=== PATIENT | female | born 1990 | race Caucasian/White ===

== ENCOUNTER 2018-03-09 19:22 | Inpatient (IN) | payer MEDICAID ==
[2018-03-09] MEDS: ALBUTEROL 0.5% (NEB) 2.5 MG/0.5 ML AMP INH (20:09)
[2018-03-09 20:48] LABS: ADD MAN DIFF? NO
[2018-03-09 20:49] LABS: WHITE BLOOD COUNT 39.3 10^3/ul (4.8-10.8)
[2018-03-09 20:49] LABS: ABNORMAL IP MESSAGE 1; HEMATOCRIT 43.6 % (37.0-47.0); MEAN CORPUSCULAR HEMOGLOBIN 27.3 pg (29.0-33.0); MEAN CORPUSCULAR HGB CONC 32.1 g/dl (32.0-37.0); MEAN CORPUSCULAR VOLUME 85.2 fl (82.0-101.0); MEAN PLATELET VOLUME 10.3 fl (7.4-10.4); NUCLEATED RED BLOOD CELLS% 0.1 /100WBC (0.0-0.0); PLATELET COUNT 310 10^3/UL (140-415); RED BLOOD COUNT 5.12 10^6/ul (4.20-5.40); RED CELL DISTRIBUTION WIDTH 13.6 % (11.5-14.5)
[2018-03-09 20:51] LABS: POSITIVE DIFF @See below
[2018-03-09 21:03] LABS: AADO2 Arterial 108.3 mmHg (7.0-24.0); Allen Test ACCEPTAB; Arterial Base Excess 6.1 mmol/L (-3.0-3); Arterial Blood Gas Oxygen Sat 88.6 mmHG (95.0-98.0); Arterial Fraction of Oxyhgb 87.5 % (93.0-99.0); Arterial HCO3 30.7 mmol/L (22.0-26.0); Arterial MetHb 0.2 % (0.0-1.5); Arterial pCO2 43.9 mmhg (35-45); MODE NASAL CANNULA; Site Right Radial
[2018-03-09] MEDS: SOD CHLORIDE 0.9% 1,000 ML IV ×2 (21:03→23:22)
[2018-03-09] MEDS: IBUPROFEN 600 MG TAB PO (21:03)
[2018-03-09 21:06] LABS: ALANINE AMINOTRANSFERASE 9 IU/L (13-69); ALBUMIN 3.7 g/dl (3.3-4.9); ALBUMIN/GLOBULIN RATIO 0.77; ALKALINE PHOSPHATASE 101 IU/L (42-121); ANION GAP 11 (5-13); ASPARTATE AMINO TRANSFERASE 23 IU/L (15-46); BILIRUBIN,INDIRECT 0.5 mg/dl (0-1.1); BILIRUBIN,TOTAL 0.5 mg/dl (0.2-1.3); BLOOD UREA NITROGEN 8 mg/dl (7-20); CALCIUM 8.1 mg/dl (8.4-10.2); CARBON DIOXIDE 30 mmol/L (21-31); CHLORIDE 96 mmol/L (97-110); CREATININE 0.56 mg/dl (0.44-1.00); Estimated GFR > 60 mL/min (>60); GLUCOSE 138 mg/dl (70-220); POTASSIUM 3.6 mmol/L (3.5-5.1); SODIUM 137 mmol/L (135-144); TOTAL PROTEIN 8.5 g/dl (6.1-8.1)
[2018-03-09 21:08] LABS: INR 1.17; PROTIME 15.1 Sec (11.9-14.9); PT RATIO 1.2
[2018-03-09 21:09] LABS: PARTIAL THROMBOPLASTIN TIME 36.3 Sec (23.0-35.0)
[2018-03-09 21:12] LABS: LIPASE < 10 U/L (23-300)
[2018-03-09 21:17] LABS: TROPONIN-I 0.021 ng/ml (0.000-0.120)
[2018-03-09] MEDS: CEFTRIAXONE 2 GM/50 ML (PMX) 50 ML IVPB (21:35)
[2018-03-09 21:45] LABS: ANISOCYTOSIS 1+ (0-0); BAND NEUTROPHILS #M 12.5 10^3/ul (0.0-0.6); BAND NEUTROPHILS % (M) 32 % (0-4); BASOPHIL #M 0.3 10^3/ul (0.0-0.0); BASOPHILS % (M) 1 % (0-2); GIANT THROMBO% (M) 2 % (0-0); LYMPHOCYTES #M 0.7 10^3/ul (0.8-2.9); LYMPHOCYTES % (M) 2 % (15-51); MICROCYTOSIS 1+ (0-0); MONOCYTE #M 2.7 10^3/ul (0.3-0.9); MONOCYTES % (M) 7 % (0-11); MYELOCYTES #M 0.3 10^3/ul (0.0-0.0); MYELOCYTES % (M) 1 % (0-0); OVALOCYTES 1+ (0-0); PLATELET ESTIMATE NORMAL; POLYCHROMASIA 1+ (0-0); REACTIVE LYMPHOCYTES #M 0.7 10^3/ul (0.0-0.0); REACTIVE LYMPHOCYTES% (M) 2 % (0-0); SEG NEUT #M 26.5 10^3/ul (1.6-7.5); SEGMENTED NEUTROPHILS (M) % 55 % (39-77); SMUDGE%M 31 % (0-0)
[2018-03-09] MEDS: AZITHROMYCIN 500MG/NS (PMX) 250 ML IVPB (22:18)
[2018-03-09] MEDS ORDERED: ALBUTEROL/IPRATROPIUM (NEB) 3 ML AMP HHN (23:30)
[2018-03-09] MEDS ORDERED: HYDROCODONE/APAP (5/325) TAB PO (23:30)
[2018-03-09] MEDS ORDERED: NACL 0.9% 3 ML SYG IV (23:30)
[2018-03-10 00:24] LABS: LACTIC ACID 1.3 mmol/L (0.5-2.0)
[2018-03-10] MEDS: HYDROCODONE/APAP (5/325) TAB PO (03:34)
[2018-03-10 06:09] LABS: ABNORMAL IP MESSAGE 1; HEMATOCRIT 43.8 % (37.0-47.0); HEMOGLOBIN 13.5 g/dl (12.0-16.0); MEAN CORPUSCULAR HEMOGLOBIN 27.1 pg (29.0-33.0); MEAN CORPUSCULAR HGB CONC 30.8 g/dl (32.0-37.0); MEAN CORPUSCULAR VOLUME 87.8 fl (82.0-101.0); MEAN PLATELET VOLUME 10.9 fl (7.4-10.4); NUCLEATED RED BLOOD CELLS% 0.1 /100WBC (0.0-0.0); PLATELET COUNT 331 10^3/UL (140-415); RED BLOOD COUNT 4.99 10^6/ul (4.20-5.40)
[2018-03-10 06:09] LABS: WHITE BLOOD COUNT 59.3 10^3/ul (4.8-10.8)
[2018-03-10 06:19] LABS: ADD MAN DIFF? YES; POSITIVE DIFF @See below
[2018-03-10 06:37] LABS: ALANINE AMINOTRANSFERASE 12 IU/L (13-69); ALBUMIN 3.6 g/dl (3.3-4.9); ALBUMIN/GLOBULIN RATIO 0.76; ALKALINE PHOSPHATASE 102 IU/L (42-121); ANION GAP 11 (5-13); ASPARTATE AMINO TRANSFERASE 28 IU/L (15-46); BILIRUBIN,INDIRECT 0.3 mg/dl (0-1.1); BILIRUBIN,TOTAL 0.3 mg/dl (0.2-1.3); BLOOD UREA NITROGEN 14 mg/dl (7-20); CALCIUM 7.5 mg/dl (8.4-10.2); CARBON DIOXIDE 31 mmol/L (21-31); CHLORIDE 99 mmol/L (97-110); Estimated GFR 59 mL/min (>60); GLUCOSE 128 mg/dl (70-220); MAGNESIUM 1.4 mg/dl (1.7-2.5); POTASSIUM 3.1 mmol/L (3.5-5.1); SODIUM 141 mmol/L (135-144); TOTAL PROTEIN 8.3 g/dl (6.1-8.1)
[2018-03-10 07:09] LABS: HEMOGLOBIN A1C 5.4 % (0-5.9)
[2018-03-10] MEDS ORDERED: VANCOMYCIN IV PER PHARMACY XX (08:30)
[2018-03-10 08:35] LABS: ANISOCYTOSIS 1+ (0-0); BAND NEUTROPHILS #M 17.1 10^3/ul (0.0-0.6); BAND NEUTROPHILS % (M) 29 % (0-4); BURR CELLS 1+ (0-0); LYMPHOCYTES #M 11.8 10^3/ul (0.8-2.9); LYMPHOCYTES % (M) 20 % (15-51); METAMYELOCYTES #M 1.7 10^3/ul (0.0-0.0); METAMYELOCYTES %M 3 % (0-0); MICROCYTOSIS 1+ (0-0); MONOCYTE #M 2.3 10^3/ul (0.3-0.9); MONOCYTES % (M) 4 % (0-11); MYELOCYTES #M 2.3 10^3/ul (0.0-0.0); MYELOCYTES % (M) 4 % (0-0); PLATELET ESTIMATE NORMAL; POLYCHROMASIA 3+ (0-0); REACTIVE LYMPHOCYTES #M 1.7 10^3/ul (0.0-0.0); REACTIVE LYMPHOCYTES% (M) 3 % (0-0); SEG NEUT #M 32.1 10^3/ul (1.6-7.5); SEGMENTED NEUTROPHILS (M) % 37 % (39-77); SMUDGE%M 35 % (0-0)
[2018-03-10] MEDS ORDERED: MEROPENEM 500MG/50 ML (PMX) 50 ML IVPB (09:00)
[2018-03-10] MEDS: MEROPENEM 1 GM/50ML(PMX) 50 ML IVPB ×3 (09:19→22:01)
[2018-03-10] MEDS: SOD CHLORIDE 0.9% 1,000 ML IV ×2 (11:32→20:44)
[2018-03-10] MEDS: VANCOMYCIN 1.75 GM in SOD CHLORIDE 0.9% 500 ML IVPB (12:49)
[2018-03-10] MEDS ORDERED: MEROPENEM 1 GM/50ML(PMX) 50 ML IVPB (14:00)
[2018-03-10] MEDS ORDERED: ALBUTEROL 0.083% (NEB) 2.5 MG/3 ML AMP HHN (17:30)
[2018-03-10] MEDS ORDERED: CEFTRIAXONE 2 GM/50 ML (PMX) 50 ML IVPB (17:30)
[2018-03-10] MEDS: POTASSIUM CHLORIDE 20 MEQ POWDER FOR ORAL SOLN PO (17:46)
[2018-03-10] MEDS: HYDROCODONE/APAP (10/325) TAB PO ×2 (17:51→22:18)
[2018-03-10] MEDS: MAGNESIUM SULFATE 4 GM/100 ML 100 ML IVPB (18:56)
[2018-03-10] MEDS: OSELTAMIVIR 75 MG CAP PO ×2 (20:43→22:01)
[2018-03-10] MEDS: AZITHROMYCIN 250 MG TAB PO (20:44)
[2018-03-10] MEDS: ONDANSETRON 4 MG INJ IV (22:55)
[2018-03-11] MEDS: VANCOMYCIN 1.75 GM in SOD CHLORIDE 0.9% 500 ML IVPB ×2 (00:24→12:23)
[2018-03-11] MEDS: MEROPENEM 1 GM/50ML(PMX) 50 ML IVPB ×3 (05:19→21:14)
[2018-03-11 06:44] LABS: ALANINE AMINOTRANSFERASE 11 IU/L (13-69); ALBUMIN 3.6 g/dl (3.3-4.9); ALKALINE PHOSPHATASE 143 IU/L (42-121); ANION GAP 6 (5-13); ASPARTATE AMINO TRANSFERASE 26 IU/L (15-46); BLOOD UREA NITROGEN 18 mg/dl (7-20); CARBON DIOXIDE 35 mmol/L (21-31); CHLORIDE 101 mmol/L (97-110); CREATININE 0.71 mg/dl (0.44-1.00); Estimated GFR > 60 mL/min (>60); GLUCOSE 149 mg/dl (70-220); MAGNESIUM 2.7 mg/dl (1.7-2.5); POTASSIUM 4.7 mmol/L (3.5-5.1); SODIUM 142 mmol/L (135-144); TOTAL PROTEIN 8.7 g/dl (6.1-8.1)
[2018-03-11 06:46] LABS: TROPONIN-I < 0.012 ng/ml (0.000-0.120)
[2018-03-11 07:16] LABS: ABNORMAL IP MESSAGE 1; HEMATOCRIT 44.8 % (37.0-47.0); HEMOGLOBIN 13.7 g/dl (12.0-16.0); MEAN CORPUSCULAR HEMOGLOBIN 27.3 pg (29.0-33.0); MEAN CORPUSCULAR HGB CONC 30.6 g/dl (32.0-37.0); MEAN CORPUSCULAR VOLUME 89.4 fl (82.0-101.0); MEAN PLATELET VOLUME 10.8 fl (7.4-10.4); NUCLEATED RED BLOOD CELLS% 0.1 /100WBC (0.0-0.0); PLATELET COUNT 303 10^3/UL (140-415); RED BLOOD COUNT 5.01 10^6/ul (4.20-5.40); RED CELL DISTRIBUTION WIDTH 14.1 % (11.5-14.5)
[2018-03-11 07:16] LABS: WHITE BLOOD COUNT 46.9 10^3/ul (4.8-10.8)
[2018-03-11 07:17] LABS: POSITIVE DIFF @See below
[2018-03-11 07:18] LABS: ADD MAN DIFF? YES
[2018-03-11 07:41] LABS: BAND NEUTROPHILS #M 2.8 10^3/ul (0.0-0.6); BAND NEUTROPHILS % (M) 6 % (0-4); BASOPHIL #M 0.4 10^3/ul (0.0-0.0); BASOPHILS % (M) 1 % (0-2); LYMPHOCYTES #M 1.8 10^3/ul (0.8-2.9); LYMPHOCYTES % (M) 4 % (15-51); MONOCYTE #M 1.8 10^3/ul (0.3-0.9); MONOCYTES % (M) 4 % (0-11); PLATELET ESTIMATE NORMAL; POLYCHROMASIA 1+ (0-0); SEG NEUT #M 41.2 10^3/ul (1.6-7.5); SEGMENTED NEUTROPHILS (M) % 85 % (39-77); SMUDGE%M 4 % (0-0)
[2018-03-11] MEDS: AZITHROMYCIN 250 MG TAB PO (08:47)
[2018-03-11] MEDS: OSELTAMIVIR 75 MG CAP PO ×2 (08:47→21:13)
[2018-03-11] MEDS: POTASSIUM CHLORIDE 20 MEQ POWDER FOR ORAL SOLN PO (08:48)
[2018-03-11] MEDS ORDERED: ENOXAPARIN 40 MG/0.4 ML SYG SC (09:00)
[2018-03-11 10:51] LABS: AADO2 Arterial 428.3 mmHg (7.0-24.0); Allen Test ACCEPTAB; Arterial Base Excess 2.1 mmol/L (-3.0-3); Arterial Blood Gas Oxygen Sat 98.8 mmHG (95.0-98.0); Arterial COHb 0.4 % (0.0-3.0); Arterial Fraction of Oxyhgb 98.1 % (93.0-99.0); Arterial HCO3 36.3 mmol/L (22.0-26.0); Arterial MetHb 0.3 % (0.0-1.5); Arterial pCO2 121.4 mmhg (35-45); MODE MASK - NRB; Site Right Radial
[2018-03-11] MEDS: NALOXONE (0.4 MG/ML) INJ IV ×2 (13:01→13:24)
[2018-03-11 13:24] LABS: B-TYPE NATRIURETIC PEPTIDE 609 PG/ML (0-125)
[2018-03-11] MEDS ORDERED: NALOXONE 2 MG SYG IV (13:30)
[2018-03-11 13:42] LABS: AADO2 Arterial 166.1 mmHg (7.0-24.0); Allen Test ACCEPTAB; Arterial Base Excess 6.1 mmol/L (-3.0-3); Arterial Blood Gas Oxygen Sat 96.8 mmHG (95.0-98.0); Arterial COHb 0.5 % (0.0-3.0); Arterial HCO3 41.5 mmol/L (22.0-26.0); Arterial MetHb 0.3 % (0.0-1.5); Arterial pCO2 142.1 mmhg (35-45); MODE MASK - BIPAP; Site Left Radial
[2018-03-11 13:57] LABS: ANION GAP 6 (5-13); BLOOD UREA NITROGEN 17 mg/dl (7-20); CARBON DIOXIDE 37 mmol/L (21-31); CHLORIDE 100 mmol/L (97-110); CREATININE 0.58 mg/dl (0.44-1.00); Estimated GFR > 60 mL/min (>60); GLUCOSE 93 mg/dl (70-220); MAGNESIUM 2.7 mg/dl (1.7-2.5); POTASSIUM 5.1 mmol/L (3.5-5.1); SODIUM 143 mmol/L (135-144)
[2018-03-11] MEDS: ALBUTEROL/IPRATROPIUM (NEB) 3 ML AMP HHN ×2 (14:00→20:20)
[2018-03-11 14:35] LABS: D-DIMER 5350.74 ng/ml (<460)
[2018-03-11] MEDS: FUROSEMIDE 20 MG INJ IV (15:06)
[2018-03-11 17:23] LABS: AADO2 Arterial 145.9 mmHg (7.0-24.0); Allen Test ACCEPTAB; Arterial Base Excess 3.8 mmol/L (-3.0-3); Arterial Blood Gas Oxygen Sat 96.8 mmHG (95.0-98.0); Arterial COHb 0.7 % (0.0-3.0); Arterial Fraction of Oxyhgb 95.9 % (93.0-99.0); Arterial HCO3 33.2 mmol/L (22.0-26.0); Arterial MetHb 0.2 % (0.0-1.5); Arterial pCO2 74.9 mmhg (35-45); Blood Gas IEPAP 20/6; MODE MASK - BIPAP; Site Right Radial
[2018-03-11 17:58] LABS: ADD UMIC YES; UR ASCORBIC ACID 20 mg/dL (NEGATIVE); UR BILIRUBIN (Dip) NEGATIVE (NEGATIVE); UR BLOOD (Dip) NEGATIVE (NEGATIVE); UR CLARITY CLOUDY (CLEAR); UR COLOR YELLOW (YELLOW); UR GLUCOSE (Dip) NEGATIVE (NEGATIVE); UR KETONES (Dip) NEGATIVE (NEGATIVE); UR LEUKOCYTE ESTERASE (Dip) NEGATIVE Leu/ul (NEGATIVE); UR NITRITE (Dip) NEGATIVE (NEGATIVE); UR RBC 2 /HPF (0-5); UR SQUAMOUS EPITHELIAL CELL FEW /HPF (FEW); UR TOTAL PROTEIN (Dip) NEGATIVE (NEGATIVE); UR UROBILINOGEN (Dip) NEGATIVE (NEGATIVE); UR WBC 3 /HPF (0-5)
[2018-03-11] MEDS: ENOXAPARIN 60 MG/0.6 ML SYG SC (18:20)
[2018-03-11] MEDS: DEXTROSE 5% 1,000 ML IV (18:21)
[2018-03-11 23:51] LABS: VANCOMYCIN,TROUGH 12.2 ug/ml (10.0-20.0)
[2018-03-12] MEDS: VANCOMYCIN 1.75 GM in SOD CHLORIDE 0.9% 500 ML IVPB (01:17)
[2018-03-12] MEDS: ACETAMINOPHEN 325 MG TAB PO ×2 (03:01→14:54)
[2018-03-12 05:15] LABS: ADD MAN DIFF? NO
[2018-03-12 05:16] LABS: WHITE BLOOD COUNT 22.6 10^3/ul (4.8-10.8)
[2018-03-12 05:16] LABS: BASOPHIL # 0.1 10^3/ul (0.0-0.1); BASOPHILS % 0.3 % (0.0-2.0); EOSINOPHILS # 0.1 10^3/ul (0.0-0.5); EOSINOPHILS % 0.3 % (0.0-7.0); HEMATOCRIT 39.3 % (37.0-47.0); HEMOGLOBIN 11.7 g/dl (12.0-16.0); LYMPHOCYTES # 1.9 10^3/ul (0.8-2.9); LYMPHOCYTES % 8.6 % (15.0-51.0); MEAN CORPUSCULAR HEMOGLOBIN 26.7 pg (29.0-33.0); MEAN CORPUSCULAR HGB CONC 29.8 g/dl (32.0-37.0); MEAN CORPUSCULAR VOLUME 89.5 fl (82.0-101.0); MEAN PLATELET VOLUME 10.6 fl (7.4-10.4); MONOCYTES % 4.6 % (0.0-11.0); NEUTROPHIL # 19.3 10^3/ul (1.6-7.5); NEUTROPHILS % 85.2 % (39.0-77.0); PLATELET COUNT 258 10^3/UL (140-415); RED BLOOD COUNT 4.39 10^6/ul (4.20-5.40)
[2018-03-12 05:46] LABS: PHOSPHORUS 3.3 mg/dl (2.5-4.9)
[2018-03-12 05:46] LABS: MAGNESIUM 2.4 mg/dl (1.7-2.5)
[2018-03-12 05:50] LABS: ALANINE AMINOTRANSFERASE 11 IU/L (13-69); ALBUMIN 3.3 g/dl (3.3-4.9); ALBUMIN/GLOBULIN RATIO 0.82; ALKALINE PHOSPHATASE 123 IU/L (42-121); ANION GAP 7 (5-13); ASPARTATE AMINO TRANSFERASE 18 IU/L (15-46); BLOOD UREA NITROGEN 16 mg/dl (7-20); CALCIUM 8.1 mg/dl (8.4-10.2); CARBON DIOXIDE 36 mmol/L (21-31); CHLORIDE 101 mmol/L (97-110); CREATININE 0.56 mg/dl (0.44-1.00); Estimated GFR > 60 mL/min (>60); GLUCOSE 103 mg/dl (70-220); POTASSIUM 4.4 mmol/L (3.5-5.1); SODIUM 144 mmol/L (135-144); TOTAL PROTEIN 7.3 g/dl (6.1-8.1)
[2018-03-12] MEDS: MEROPENEM 1 GM/50ML(PMX) 50 ML IVPB ×3 (06:21→23:21)
[2018-03-12] MEDS: AZITHROMYCIN 250 MG TAB PO (08:34)
[2018-03-12] MEDS: ENOXAPARIN 60 MG/0.6 ML SYG SC ×2 (08:37→21:55)
[2018-03-12] MEDS: ALBUTEROL/IPRATROPIUM (NEB) 3 ML AMP HHN ×3 (09:00→20:00)
[2018-03-12 09:13] LABS: AADO2 Arterial 113.7 mmHg (7.0-24.0); Allen Test ACCEPTAB; Arterial Base Excess 7.4 mmol/L (-3.0-3); Arterial Blood Gas Oxygen Sat 98.4 mmHG (95.0-98.0); Arterial COHb 0.6 % (0.0-3.0); Arterial Fraction of Oxyhgb 97.6 % (93.0-99.0); Arterial HCO3 35.6 mmol/L (22.0-26.0); Arterial MetHb 0.2 % (0.0-1.5); Arterial pCO2 68.5 mmhg (35-45); Blood Gas IEPAP 20/6; Blood Gas PS 14; MODE MASK - BIPAP; Site Right Radial
[2018-03-12] MEDS: FUROSEMIDE 40 MG INJ IV (09:26)
[2018-03-12] MEDS: OSELTAMIVIR 75 MG CAP PO ×2 (09:26→20:52)
[2018-03-12] MEDS: DOXYCYCLINE 100 MG in SOD CHLORIDE 0.9% 250 ML IVPB ×2 (10:09→20:54)
[2018-03-12] MEDS: GUAIFENESIN/DM 5ML CUP PO (14:53)
[2018-03-13 05:39] LABS: ADD MAN DIFF? NO
[2018-03-13 05:51] LABS: BASOPHIL # 0.1 10^3/ul (0.0-0.1); BASOPHILS % 0.6 % (0.0-2.0); EOSINOPHILS # 0.1 10^3/ul (0.0-0.5); EOSINOPHILS % 0.9 % (0.0-7.0); HEMATOCRIT 39.5 % (37.0-47.0); HEMOGLOBIN 12.2 g/dl (12.0-16.0); LYMPHOCYTES # 2.9 10^3/ul (0.8-2.9); LYMPHOCYTES % 23.1 % (15.0-51.0); MEAN CORPUSCULAR HEMOGLOBIN 27.2 pg (29.0-33.0); MEAN CORPUSCULAR HGB CONC 30.9 g/dl (32.0-37.0); MEAN CORPUSCULAR VOLUME 88.2 fl (82.0-101.0); MONOCYTE # 0.9 10^3/ul (0.3-0.9); MONOCYTES % 7.4 % (0.0-11.0); NEUTROPHIL # 8.1 10^3/ul (1.6-7.5); NEUTROPHILS % 65.9 % (39.0-77.0); PLATELET COUNT 249 10^3/UL (140-415); RED BLOOD COUNT 4.48 10^6/ul (4.20-5.40); RED CELL DISTRIBUTION WIDTH 13.3 % (11.5-14.5)
[2018-03-13 05:51] LABS: WHITE BLOOD COUNT 12.3 10^3/ul (4.8-10.8)
[2018-03-13] MEDS: MEROPENEM 1 GM/50ML(PMX) 50 ML IVPB ×3 (05:57→21:18)
[2018-03-13 06:07] LABS: BLOOD UREA NITROGEN 12 mg/dl (7-20); CALCIUM 8.3 mg/dl (8.4-10.2); CHLORIDE 95 mmol/L (97-110); CREATININE 0.45 mg/dl (0.44-1.00); Estimated GFR > 60 mL/min (>60); GLUCOSE 98 mg/dl (70-220); POTASSIUM 4.2 mmol/L (3.5-5.1); SODIUM 141 mmol/L (135-144)
[2018-03-13 06:11] LABS: PHOSPHORUS 3.4 mg/dl (2.5-4.9)
[2018-03-13 06:11] LABS: MAGNESIUM 1.9 mg/dl (1.7-2.5)
[2018-03-13 06:15] LABS: ANION GAP 8 (5-13)
[2018-03-13 06:17] LABS: CARBON DIOXIDE 38 mmol/L (21-31)
[2018-03-13] MEDS: ALBUTEROL/IPRATROPIUM (NEB) 3 ML AMP HHN ×3 (08:47→20:37)
[2018-03-13] MEDS: DOXYCYCLINE 100 MG TAB PO ×2 (09:22→21:18)
[2018-03-13] MEDS: NYSTATIN SUSP 5 ML CUP PO ×4 (09:22→21:18)
[2018-03-13] MEDS: OSELTAMIVIR 75 MG CAP PO ×2 (09:22→21:18)
[2018-03-13] MEDS: ENOXAPARIN 60 MG/0.6 ML SYG SC ×2 (09:28→22:29)
[2018-03-13] MEDS: LORATADINE 10 MG TAB PO (10:05)
[2018-03-13] MEDS: CARBAMIDE PEROXIDE 6.5% 15ML OTIC BOTH EARS (21:00)
[2018-03-14] MEDS: MEROPENEM 1 GM/50ML(PMX) 50 ML IVPB (06:04)
[2018-03-14 06:12] LABS: ADD MAN DIFF? NO
[2018-03-14 06:15] LABS: BASOPHIL # 0.1 10^3/ul (0.0-0.1); BASOPHILS % 0.5 % (0.0-2.0); EOSINOPHILS # 0.2 10^3/ul (0.0-0.5); EOSINOPHILS % 1.7 % (0.0-7.0); HEMATOCRIT 40.4 % (37.0-47.0); HEMOGLOBIN 12.6 g/dl (12.0-16.0); LYMPHOCYTES # 2.7 10^3/ul (0.8-2.9); LYMPHOCYTES % 25.8 % (15.0-51.0); MEAN CORPUSCULAR HEMOGLOBIN 26.8 pg (29.0-33.0); MEAN CORPUSCULAR HGB CONC 31.2 g/dl (32.0-37.0); MEAN PLATELET VOLUME 10.6 fl (7.4-10.4); MONOCYTES % 9.8 % (0.0-11.0); NEUTROPHIL # 6.1 10^3/ul (1.6-7.5); NEUTROPHILS % 58.6 % (39.0-77.0); NUCLEATED RED BLOOD CELLS% 0.2 /100WBC (0.0-0.0); PLATELET COUNT 233 10^3/UL (140-415); RED CELL DISTRIBUTION WIDTH 13.3 % (11.5-14.5)
[2018-03-14 06:15] LABS: WHITE BLOOD COUNT 10.5 10^3/ul (4.8-10.8)
[2018-03-14 06:40] LABS: BLOOD UREA NITROGEN 10 mg/dl (7-20); CALCIUM 8.3 mg/dl (8.4-10.2); CHLORIDE 95 mmol/L (97-110); CREATININE 0.44 mg/dl (0.44-1.00); Estimated GFR > 60 mL/min (>60); GLUCOSE 91 mg/dl (70-220); MAGNESIUM 1.6 mg/dl (1.7-2.5); POTASSIUM 4.5 mmol/L (3.5-5.1); SODIUM 139 mmol/L (135-144)
[2018-03-14 06:40] LABS: PHOSPHORUS 4.9 mg/dl (2.5-4.9)
[2018-03-14 06:48] LABS: ANION GAP 4 (5-13)
[2018-03-14 06:49] LABS: CARBON DIOXIDE 40 mmol/L (21-31)
[2018-03-14] MEDS: NYSTATIN SUSP 5 ML CUP PO ×4 (08:19→20:29)
[2018-03-14] MEDS: LORATADINE 10 MG TAB PO (08:32)
[2018-03-14] MEDS: ACETAMINOPHEN 325 MG TAB PO ×2 (08:32→20:29)
[2018-03-14] MEDS: OSELTAMIVIR 75 MG CAP PO ×2 (08:32→20:29)
[2018-03-14] MEDS: ENOXAPARIN 60 MG/0.6 ML SYG SC ×2 (08:39→21:07)
[2018-03-14] MEDS: ALBUTEROL/IPRATROPIUM (NEB) 3 ML AMP HHN ×3 (08:48→20:45)
[2018-03-14] MEDS: CEFPODOXIME 200 MG TAB PO ×2 (09:19→20:29)
[2018-03-14] MEDS: MAGNESIUM SULFATE 2 GM/50 ML 50 ML IVPB (10:34)
[2018-03-14] MEDS: CARBAMIDE PEROXIDE 6.5% 15ML OTIC BOTH EARS ×2 (13:33→20:30)
[2018-03-15 05:20] LABS: ADD MAN DIFF? NO
[2018-03-15 05:31] LABS: WHITE BLOOD COUNT 10.8 10^3/ul (4.8-10.8)
[2018-03-15 05:31] LABS: BASOPHIL # 0.1 10^3/ul (0.0-0.1); BASOPHILS % 0.6 % (0.0-2.0); EOSINOPHILS # 0.2 10^3/ul (0.0-0.5); EOSINOPHILS % 1.8 % (0.0-7.0); HEMATOCRIT 42.5 % (37.0-47.0); HEMOGLOBIN 13.1 g/dl (12.0-16.0); LYMPHOCYTES # 1.7 10^3/ul (0.8-2.9); LYMPHOCYTES % 15.2 % (15.0-51.0); MEAN CORPUSCULAR HEMOGLOBIN 26.5 pg (29.0-33.0); MEAN CORPUSCULAR HGB CONC 30.8 g/dl (32.0-37.0); MEAN CORPUSCULAR VOLUME 85.9 fl (82.0-101.0); MEAN PLATELET VOLUME 10.4 fl (7.4-10.4); MONOCYTE # 0.8 10^3/ul (0.3-0.9); NEUTROPHIL # 7.7 10^3/ul (1.6-7.5); NEUTROPHILS % 71.1 % (39.0-77.0); PLATELET COUNT 243 10^3/UL (140-415); RED BLOOD COUNT 4.95 10^6/ul (4.20-5.40); RED CELL DISTRIBUTION WIDTH 13.3 % (11.5-14.5)
[2018-03-15 06:05] LABS: BLOOD UREA NITROGEN 12 mg/dl (7-20); CALCIUM 8.7 mg/dl (8.4-10.2); CHLORIDE 95 mmol/L (97-110); CREATININE 0.41 mg/dl (0.44-1.00); Estimated GFR > 60 mL/min (>60); GLUCOSE 99 mg/dl (70-220); POTASSIUM 4.9 mmol/L (3.5-5.1); SODIUM 141 mmol/L (135-144)
[2018-03-15 06:28] LABS: PHOSPHORUS 6.4 mg/dl (2.5-4.9)
[2018-03-15 06:28] LABS: MAGNESIUM 1.9 mg/dl (1.7-2.5)
[2018-03-15 06:41] LABS: ANION GAP 6 (5-13)
[2018-03-15 06:46] LABS: CARBON DIOXIDE 40 mmol/L (21-31)
[2018-03-15] MEDS: ALBUTEROL/IPRATROPIUM (NEB) 3 ML AMP HHN ×2 (08:40→14:02)
[2018-03-15] MEDS: CARBAMIDE PEROXIDE 6.5% 15ML OTIC BOTH EARS (08:56)
[2018-03-15] MEDS: NYSTATIN SUSP 5 ML CUP PO ×3 (08:56→18:05)
[2018-03-15] MEDS: LORATADINE 10 MG TAB PO (08:56)
[2018-03-15] MEDS: CEFPODOXIME 200 MG TAB PO (08:56)
[2018-03-15] MEDS: ENOXAPARIN 60 MG/0.6 ML SYG SC (09:53)
[2018-03-15 15:26] LABS: PROCALCITONIN 2.46 ng/mL (<0.10)
== END 2018-03-15 18:34 | disposition home or self-care (01) | DRG 871 ==
LOC: TEL 21:10 → ICU 03-11 13:55 → 6WM 03-12 17:55 → E/R 19:22
DX: A41.9 Sepsis, unspecified organism (principal); J18.9 Pneumonia, unspecified organism; J96.22 Acute and chronic respiratory failure with hypercapnia; J96.21 Acute and chronic respiratory failure with hypoxia; Z68.44 Body mass index [BMI] 60.0-69.9, adult; I50.30 Unspecified diastolic (congestive) heart failure; B37.0 Candidal stomatitis; E66.01 Morbid (severe) obesity due to excess calories; I11.0 Hypertensive heart disease with heart failure; G47.33 Obstructive sleep apnea (adult) (pediatric); I83.91 Asymptomatic varicose veins of right lower extremity; H61.23 Impacted cerumen, bilateral; J20.9 Acute bronchitis, unspecified
CPT/HCPCS: 36415; 36600; 70220; 71045; 80048; 80053; 80202; 81001; 82803; 82962; 83036; 83605; 83690; 83735; 83880; 84100; 84145; 84443; 84484; 84703; 85025; 85378; 85610; 85730; 87040; 87081; 87086; 87275; 87276; 87279; 87280; 87400; 93005; 93306; 93970; 94640; 94644; 94660; 94664; 99291-25